=== PATIENT | male | born 1945 ===

== ENCOUNTER 2019-04-10 10:15 | Inpatient (IN) | payer OTHER ==
[~2019-04-10] VITALS: Ht 167.6 cm; Wt 83.0 kg
[2019-04-10] MEDS ORDERED: GLIPIZIDE5 MG PO (12:49)
[2019-04-10] MEDS ORDERED: NORVASC5 MG PO (12:50)
[2019-04-10] MEDS ORDERED: TOPROL XL25 M1 PO (12:51)
[2019-04-10] MEDS ORDERED: ALTACE5 MG PO (12:51)
[2019-04-10] MEDS ORDERED: JANUMET 50-1,01 EACH PO (12:51)
[2019-04-10] MEDS ORDERED: ATORVASTATIN CA40 MG PO (12:51)
[2019-04-10] MEDS ORDERED: ASPIR 8181 MG PO (12:52)
== END 2019-04-18 17:41 | DRG 470 ==
LOC: O/R 10:15 → SURH 04-16 06:42 → O/R 04-16 06:42 → SURH 04-16 07:00
PROVIDERS: ADMIT Orthopaedic Surgery
PROC: 0SRC0J9 Replacement of Right Knee Joint with Synthetic Substitute, Cemented, Open Approach (ICD-10-PCS; principal; 2019-04-16 07:00)
DX: M17.11 Unilateral primary osteoarthritis, right knee (principal); D62 Acute posthemorrhagic anemia; E11.8 Type 2 diabetes mellitus with unspecified complications; I10 Essential (primary) hypertension; Z96.651 Presence of right artificial knee joint; Z85.46 Personal history of malignant neoplasm of prostate